=== PATIENT | female | born 1940 | race Caucasian/White ===

== ENCOUNTER 2020-11-19 19:09 | Emergency (ER) | payer MEDICARE, MEDICAID ==
--- NOTE | 2020-11-19 20:35 | EDM.PDOC ---
ED HPI GENERAL MEDICAL PROBLEM - General Chief Complaint: Upper Extremity Injury/Pain Stated Complaint: SHOULDER PAIN Time Seen by Provider: 11/19/20 20:00 Source of Information: Reports: Patient, RN Notes Reviewed History Limitations: Reports: No Limitations - History of Present Illness INITIAL COMMENTS - FREE TEXT/NARRATIVE: Patient is a 79-year-old female brought into the ER by [facility] staff for the evaluation of a possible dislocated shoulder. Patient was evaluated at the walk-in clinic, and was thought to have a dislocation or subluxation of her shoulder joint. Patient was trying to reach for [employer] earlier tonight, when she fell out of her chair and fell with an outstretched arm, and had pain in her left shoulder and was able to move it after that. She is denying any numbness or tingling to the arm. She is having no pain further up the arm. X- rays were pushed from the walk-in clinic, and reviewed by myself and Dr. Carrington and he does agree that there very well could be an anterior dislocation apparent. Patient last ate a sandwich at about 6 PM. 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: Psychiatric History: Reports: Anxiety - Past Surgical History HEENT Surgical History: Reports: Adenoidectomy, Tonsillectomy Female Surgical History: Reports: Hysterectomy Neurological Surgical History: Reports: Lumbar Spine Musculoskeletal Surgical History: Reports: Other (See Below) Other Musculoskeletal Surgeries/Procedures:: left wrist surgery Social & Family History - Family History Family Medical History: No Pertinent Family History - Tobacco Use Tobacco Use Status *Q: Former Tobacco User Used Tobacco, but Quit: Yes Month/Year Tobacco Last Used: 02/2014 - Caffeine Use Caffeine Use: Reports: Coffee - Recreational Drug Use Recreational Drug Use: No Review of Systems - Review of Systems Review Of Systems: Comprehensive ROS is negative, except as noted in HPI. ED EXAM, GENERAL - Physical Exam Exam: See Below Exam Limited By: No Limitations General Appearance: Alert, WD/WN, No Apparent Distress Respiratory/Chest: No Respiratory Distress, Lungs Clear, Normal Breath Sounds, No Accessory Muscle Use, Chest Non-Tender Cardiovascular: Normal Peripheral Pulses, Regular Rate, Rhythm, No Edema Peripheral Pulses: 2+: Radial (L), Radial (R) Extremities: Normal Inspection, Normal Capillary Refill, Limited Range of Motion (of left shoulder d/t pain) Neurological: Alert, Oriented, No Motor/Sensory Deficits Psychiatric: Normal Affect, Normal Mood Skin Exam: Warm, Dry, Intact, Normal Color, No Rash ED TRAUMA EXTREMITY PROCEDURES - Joint Reduction Left Shoulder Pre-Procedure NV Status: Normal Post-Procedure NV Status: Normal Technique: Other (external rotation) Number of Attempts: 1 Post-Reduction Imaging: Acceptably Reduced, No Fracture Seen Course - Vital Signs Last Recorded V/S: Last Vital Signs Temp 97.4 F 11/19/20 19:25 Pulse 75 11/19/20 19:25 Resp 16 11/19/20 19:25 BP 125/59 L 11/19/20 19:25 Pulse Ox 99 11/19/20 19:25 - Orders/Labs/Meds Orders: Active Orders 24 hr Category Date Time Status Shoulder wo Cont Lt [CT] Stat Exams 11/19/20 20:26 Ordered - Re-Assessments/Exams Free Text/Narrative Re-Assessment/Exam: 11/19/20 20:34 The patient's shoulder x-ray was suspicious for anterior dislocation, I did try one attempt to try to reduce the shoulder in nature in the ER without sedation or otherwise as the patient was not in too much pain. She states that she felt a little bit of a click, as did I. And states that her arm feels better we will go ahead and get some imaging to see if it is indeed reduced itself. If not then she will need to stay for a few hours, have IV placed and have PULMONOLOGIST involved to get her shoulder reduced. 11/19/20 21:[address] does appear to show that the shoulder joint is in place, official radiology read is pending but this was reviewed by myself and Dr. Arciniega, he does agree that it looks like the shoulder is in place, we will go ahead and sling and swath the patient and have her take some Tylenol ibuprofen every 6 hours as needed for ongoing pain management. We will have him follow-up with orthopedics sometime this week for ongoing management. Departure - Departure Time of Disposition: 21:47 Disposition: Home, Self-Care 01 Condition: Good Clinical Impression: Shoulder subluxation, left Qualifiers: Encounter type: initial encounter Qualified Code(s): S43.002A - Unspecified subluxation of left shoulder joint, initial encounter - Discharge Information *PRESCRIPTION DRUG MONITORING PROGRAM REVIEWED*: No *COPY OF PRESCRIPTION DRUG MONITORING REPORT IN PATIENT RANDOLPH: No Instructions: Shoulder Dislocation, [id number] Referrals: Oscar Hernandez MD [Primary Care Provider] - Forms: ED Department Discharge Additional Instructions: You have been evaluated in the ED for your left shoulder pain/possible dislocation. Your x-ray demonstrated the possibility of your left shoulder being dislocated, your shoulder was not manipulated in the ER, but the CT after it was manipulated did show that the shoulder was back within joint. You have been placed in a sling, and will need to have the arm swath, to try to prevent movement in the joint. Please use ice as tolerated to the affected area. You may elevate the affected area to provide further relief from swelling. You may take Tylenol 500 mg or ibuprofen 600mg q6 hrs for pain relief. Please do so until you have a tolerable level of pain with activity. Do not exceed 4000mg Tylenol, Do not exceed 3200mg ibuprofen in a 24 hour time period. Please call Ortho for follow-up and further evaluation Dr. Guzman is our orthopedic surgeon, his office number is [phone]. Please call and set up an appointment as soon as possible for further management. Please return to ED if your symptoms should change or worsen. Sepsis Event Note (ED) - Focused Exam Vital Signs: Vital Signs Temp Pulse Resp BP Pulse Ox 11/19/20 19:25 97.4 F 75 16 125/59 L 99 - My Orders Last 24 Hours: My Active Orders 11/19/20 20:26 Shoulder wo Cont Lt [CT] Stat - Assessment/Plan Last 24 Hours: My Active Orders 11/19/20 20:26 Shoulder wo Cont Lt [CT] Stat
--- NOTE | 2020-11-22 13:24 | CT ---
CT left shoulder Technique: Multiple axial sections through the left shoulder were obtained. Reconstructed coronal and sagittal images were obtained as well as surface rendered images. Comparison: No prior shoulder study is available. Findings: Glenohumeral alignment is normal. Acromioclavicular joint shows mild degenerative change. Slight inferior spurring is noted as well as mild superior and inferior capsular bulging. Small joint effusion is seen. Visualized lungs show no acute parenchymal change. Degenerative change is noted within the lower cervical spine and thoracic spine. No acute osseous abnormality is appreciated. Impression: 1. No findings of dislocation. No fracture is seen. 2. Degenerative change within the acromioclavicular joint and spine. 3. Mild joint effusion. Diagnostic code #2 I agree with preliminary report from [facility], finalized on 11/19/20, 11:15 PM CDT, code 1 MTDD
== END 2020-11-19 22:31 | disposition home or self-care (01) ==
LOC: JD.ED 19:09
DX: S43.002A Unspecified subluxation of left shoulder joint, initial encounter (principal); I25.10 Atherosclerotic heart disease of native coronary artery without angina pectoris; I10 Essential (primary) hypertension; Z88.2 Allergy status to sulfonamides; Z87.891 Personal history of nicotine dependence; W07.XXXA Fall from chair, initial encounter
CPT/HCPCS: 23650; 73200-26-LT; 73200-LT; 99283-25